=== PATIENT | female | born 1950 ===

== ENCOUNTER 2025-06-09 03:21 | Outpatient (RCR) | payer MEDICARE, OTHER, SELFPAY ==
[2025-06-09] MEDS: Normal Saline 1,000 ML 999 ML IV (12:07)
[2025-06-09] MEDS: MAGNESIUM SULFATE 1 GM/100 ML BAG IV_INF (12:07)
== END 2025-06-15 23:59 | disposition home or self-care (01) ==
LOC: INF 03:21
PROVIDERS: PCP Psychiatry & Neurology Neurology; Visit Provider Nurse Practitioner Family
DX: G43.009 Migraine without aura, not intractable, without status migrainosus (principal)
CPT/HCPCS: 96365; J3475